=== PATIENT | female | born 1950 | race Caucasian/White ===

== ENCOUNTER 2017-07-21 21:50 | Emergency (ER) | payer OTHER, MEDICARE ==
[~2017-07-21] VITALS: Ht 157.5 cm; Wt 57.6 kg
[~2017-07-21 21:50] MED LIST: AFRIN,GENASAL D15 ML BOTH NARES; ASPIR-LOW81 MG PO; BENADRYL25 MG PO; CLONAZEPAM0.5 MG PO; CLONAZEPAM1 MG PO; DURAGESIC25 MCG TD; FENTANYL1 EAC3 TD; FENTANYL1 EAC5 TD; FLEET ENEMA-AD118 ML PR; KLONOPIN0.5 M1 PO; KLONOPIN1 MG PO; LIPITOR20 MG PO; MEDROL DOSEPAK4 MG PO; MIRALAX17 GM PO; MIRALAX255 GM PO; OMEGA-31000 M1 PO; OXYCODONE HCL15 MG PO; PEPCID40 MG PO; ROXICODONE15 MG PO; STOOL SOFTENER100 MG PO; VITAMIN D-32000 UNI2 PO; VITAMIN D31000 UNIT PO
[2017-07-21 22:57] LABS: BILIRUBIN NEGATIVE; BLOOD NEGATIVE; COLOR YELLOW ((YELLOW)); GLUCOSE (STRIP) NEGATIVE; KETONES NEGATIVE; LEUKOCYTES NEGATIVE; NITRITE NEGATIVE; PROTEIN (STRIP) NEGATIVE; SPECIFIC GRAVITY 1.008 (1.000-1.030); UROBILINOGEN 0.2 MG/DL (0.2-1.0)
[2017-07-21 23:00] LABS: ADD MIUA? NO; UCUL ADDED? NO
[2017-07-22 00:07] VITALS: BP 122/70
== END 2017-07-22 00:08 | disposition home or self-care (01) ==
LOC: EME → EDBD 21:50 → EME 21:50 → EDSEX 21:50 → EME 07-22 00:08
PROVIDERS: Emergency Medicine
DX: M54.5 Low back pain (principal); G89.29 Other chronic pain; M79.605 Pain in left leg; F17.200 Nicotine dependence, unspecified, uncomplicated
CPT/HCPCS: 81003; 99281; 99284; J3010

== ENCOUNTER 2017-09-08 15:39 | Emergency (ER) | payer OTHER, MEDICARE ==
[~2017-09-08] VITALS: Ht 157.5 cm; Wt 57.7 kg
[2017-09-08 16:23] LABS: EOSINOPHIL (%) 1.6 % (0-5); EOSINOPHIL COUNT 0.1 K/uL (0-0.3); HEMATOCRIT 32.1 % (36.0-46.0); IMMATURE GRANULOCYTE (%) 0.4 % (0.0-0.7); INSTRUMENT ABS NEUTROPHIL CT 2.6 K/uL; LYMPHOCYTE COUNT 1.7 K/uL (1.0-2.8); MCH 29.9 PG (29.0-34.0); MCV 90.7 FL (83-99); MEAN PLAT.VOLUME 9.9 uM^3 (9.5-12.4); MONOCYTE (%) 8.8 % (3-12); MONOCYTE COUNT 0.4 K/uL (0-0.8); NEUTROPHIL (%) 54.4 % (45-76); NEUTROPHIL COUNT 2.6 K/uL (1.8-6.4); PLATELET COUNT 252 K/uL (156-360); RBC DIS.WIDTH-CV 13.2 % (11.8-14.6); RED BLOOD COUNT 3.54 M/uL (3.80-5.20); WHITE BLOOD COUNT 4.9 K/uL (4.1-10.2)
[2017-09-08 16:39] LABS: CHLORIDE 105 mEq/L (99-109); POTASSIUM 3.9 mEq/L (3.7-5.4); SODIUM 138 mEq/L (136-147)
[2017-09-08 16:41] LABS: GLUCOSE 92 mg/dL (70-99)
[2017-09-08 16:43] LABS: ANION GAP 8 MEQ/L (2-14); TOTAL BILIRUBIN 0.3 mg/dL (0.0-1.0)
[2017-09-08 16:45] LABS: ALKALINE PHOSPHATASE 50 IU/L (3-129); GFR ESTIMATE (CALCULATED) 59 mL/min/
[2017-09-08 16:46] LABS: UREA NITROGEN (BUN) 12 mg/dL (9-23)
[2017-09-08 17:09] LABS: INFLUENZA A VIRAL ANTIGEN NEGATIVE; INFLUENZA B VIRAL ANTIGEN NEGATIVE
[2017-09-08 17:40] LABS: ADD MIUA? YES; BILIRUBIN NEGATIVE; BLOOD NEGATIVE; COLOR STRAW ((YELLOW)); GLUCOSE (STRIP) NEGATIVE; KETONES NEGATIVE; LEUKOCYTES SMALL; NITRITE NEGATIVE; PROTEIN (STRIP) NEGATIVE; SPECIFIC GRAVITY 1.004 (1.000-1.030); UROBILINOGEN 0.2 MG/DL (0.2-1.0)
[2017-09-08 17:45] LABS: BACTERIA NONE SEEN /HPF; EPITHELIAL CELLS RARE /HPF; MUCUS NONE SEEN /LPF; RED BLOOD CELLS 0-5 /HPF (0-5); UCUL ADDED? NO; WHITE BLOOD CELLS 0-5 /HPF (0-5)
[2017-09-08 19:21] VITALS: BP 146/78
== END 2017-09-08 19:24 | disposition home or self-care (01) ==
LOC: EME 15:39
PROVIDERS: Emergency Medicine
DX: J06.9 Acute upper respiratory infection, unspecified (principal); R53.1 Weakness; M25.512 Pain in left shoulder; R10.9 Unspecified abdominal pain; R11.0 Nausea; R51 Headache; F17.200 Nicotine dependence, unspecified, uncomplicated
CPT/HCPCS: 71020; 80053; 81003; 85025; 87502; 99281; 99285; J7030

== ENCOUNTER 2018-04-09 15:43 | Emergency (ER) | payer OTHER, MEDICARE ==
[~2018-04-09] VITALS: Ht 157.5 cm; Wt 55.1 kg
[2018-04-09 16:03] LABS: HEMATOCRIT 34.5 % (36.0-46.0); HEMOGLOBIN 11.7 G/DL (11.9-15.5); MCH 30.6 PG (29.0-34.0); MCHC 33.9 G/DL (30.0-36.0); MCV 90.3 FL (83-99); PLATELET COUNT 237 K/uL (156-360); RBC DIS.WIDTH-CV 13.5 % (11.8-14.6); RBC DIS.WIDTH-SD 44.5 % (39-53); RED BLOOD COUNT 3.82 M/uL (3.80-5.20); WHITE BLOOD COUNT 6.9 K/uL (4.1-10.2)
[2018-04-09 16:13] LABS: CHLORIDE 101 mEq/L (99-109); POTASSIUM 4.1 mEq/L (3.7-5.4); SODIUM 136 mEq/L (136-147)
[2018-04-09 16:14] LABS: GLUCOSE 86 mg/dL (70-99)
[2018-04-09 16:18] LABS: CREATININE 1.2 mg/dL (0.6-1.3); GFR ESTIMATE (CALCULATED) 47 mL/min/
[2018-04-09 16:19] LABS: UREA NITROGEN (BUN) 20 mg/dL (9-23)
[2018-04-09 16:26] LABS: TROP-I INTERPRETATION NEGATIVE; TROPONIN-I 0.02 ng/mL (0.0-0.30)
[2018-04-09 18:20] VITALS: BP 140/71
== END 2018-04-09 18:20 | disposition home or self-care (01) ==
LOC: EME 15:43
PROVIDERS: Emergency Medicine
DX: I95.1 Orthostatic hypotension (principal); K58.9 Irritable bowel syndrome, unspecified; F17.200 Nicotine dependence, unspecified, uncomplicated; Z88.2 Allergy status to sulfonamides; Z88.0 Allergy status to penicillin; Z88.4 Allergy status to anesthetic agent; Z91.041 Radiographic dye allergy status
CPT/HCPCS: 80048; 84484; 85027; 93005; 99281; 99285; J7030